=== PATIENT | male | born 1965 | race Caucasian/White ===

== ENCOUNTER 2019-08-12 10:28 | Observation (INO) ==
[2019-08-12] MEDS ORDERED: XYLOCAINE 1%/SOD BICARB 20 ML VIAL INFIL ONE (10:40)
--- NOTE | 2019-08-12 10:52 | Emergency Department Note ---
Impression & Plan Laceration of multiple sites of right hand and fingers, Extensor tendon laceration, finger, open wound ED Provider Note CHIEF COMPLAINT: Hand injury, multiple lacerations HISTORY OF PRESENT ILLNESS: This 54-year-old male patient presented to the emergency department from [facility] accompanied by two CO's after he injured the right hand from punching a glass window. He states he punched his hand through the glass because he got angry, causing multiple lacerations to the right hand. The patient rates the pain as throbbing and 2/10. The patient denies any numbness or tingling in the fingers. He is able to move all the fingers, but reports decreased movement in the right index finger. The patient denies any injuries to the wrist. He denies any other injuries besides the right hand. The patient has not had a previous fracture to this hand. He is right hand dominant. He reports that his tetanus is up to date. He denies any blood thinners. He denies any headaches, chest pain, shortness of breath, nausea or vomiting. REVIEW OF SYSTEMS: A complete 10 point review of systems was reviewed with the patient with pertinent positives and negatives as per history of present il lness. All else were negative. ALLERGIES: No known allergies MEDICATIONS: Reviewed in chart and with the patient PMH: Hypertension, bipolar disorder SOCIAL HISTORY: Inmate at [facility] shelter, former smoker PHYSICAL EXAM: Vital Signs: Reviewed Nurse's notes, vital signs stable. CONSTITUTIONAL: Pleasant and cooperative. No acute distress. Well appearing and well nourished. HEENT: Normocephalic, atraumatic. NECK: Supple, full active range of motion without discomfort. RESPIRATORY: Clear to auscultation bilaterally with no wheezing, crackles, rhonchi or stridor. Equal expansion bilaterally. CARDIOVASCULAR: Regular rate and rhythm with no murmurs, rubs or gallops. Normal peripheral perfusion, 2+ distal pulses in all 4 extremities. No peripheral edema. GASTROINTESTINAL: Soft, nontender, nondistended. Bowel sounds present in all quadrants. MUSCULOSKELETAL: Full range of motion of all joints without discomfort. INTEGUMENTARY: There were multiple deep lacerations noted on the dorsal aspect of the right hand, one measuring approximately 3.5 cm overlying the MCP joint of the right index finger and another 1.5 cm laceration just below the PIP joint on the right index finger, both lacerations appear to extend significantly through the extensor tendon. There is additionally a 1 cm laceration over the dorsal aspect of the middle digit with no deep structures involved, and a 2 cm laceration of the subcutaneous tissue on the dorsal medial aspect of the right hand. There is moderate bleeding from all of the lacerations, most significant from the large laceration over the MCP joint of the index finger. There does not appear to be any exposed bone in the base of any of the wounds and there is no evidence for retained foreign body or foreign material in the wound, the woun ds look clean. Decreased strength and movement of the right index finger, normal strength and movement of all the other fingers. Capillary refill less than 2 seconds. Normal sensation to light and sharp touch throughout. NEUROLOGIC: Alert and oriented X 4 with normal affect. Normal strength and se nsation grossly intact in all 4 extremities. Normal speech. Normal gait observed. ED COURSE AND MEDICAL DECISION MAKING: CC: Patient presenting with complaint of hand injury, multiple lacerations DIFFERENTIAL DIAGNOSIS: Includes, but not limited to laceration, abrasion, tendon injury, open fracture, retained foreign body, blood vessel injury, sprain/strain, among others. IMAGING: XR hand RT min 3V routine CLINICAL HISTORY: Right hand pain status post trauma COMPARISON: None DISCUSSION: No acute fractures or dislocations are visualized. There is a bandage overlying the fifth metacarpal phalangeal joint. IMPRESSION: No acute fractures or dislocations identified. MEDICATION RECONCILIATION: I attest that I have personally reviewed the patient's current medication list. INITIAL VITAL SIGNS REVIEW: I reviewed the patient's initial vital signs and interpret them as follows: T: Afebrile; BP: Hypertensive; HR: Mildly tachycardic; RR: Within normal limits; Pulse Ox: Within normal limits on room air. Blood pressure screening: The patient was found to have an elevated blood pressure, which was felt to be situational. MDM SUMMARY: Patient was evaluated at bedside, history and physical exam performed. Patient is alert and oriented, in no acute distress, sitting calmly on the stretcher. The right hand has multiple lacerations as noted above, with significant tendon involvement in the right index finger. Orders were placed at bedside for X-ray of the right hand to evaluate for trauma. Patient discussed with Dr. Greenberg, who agrees with my assessment, plan, and di sposition. X-ray imaging reviewed as above, no apparent fracture or foreign body. I spoke on the phone with Mulu Kaplan PA-C with the orthopedic surgery team, regarding the extensive tendon injuries. She and Dr. Cabrera evaluated the patient and are planning to take him to the OR for repair. He will most likely be admitted overnight. Patient reassessed multiple times throughout ED stay, he has remained hemodynamically stable and his pain has been adequately controlled. The patient was updated on all results and plan for surgery, he verbalized understanding and was agreeable with this plan. The patient was stable at time of admission. The chart was completed utilizing [employer] voice recognition software. Grammatical errors, random word insertions, pronoun errors, and incomplete sentences are an occasional consequence of this system due to software limitations, ambient noise, and hardware issues. Any formal questions or concerns about the content, text, or information contained within the body of this dictation should be directly addressed to the nurse practitioner for clarification. Past Med/Surg History Medical History Asthma Bipolar 1 disorder Hypertension Surgical History History of right inguinal hernia repair (Acute) as child per patient. 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 Beliefs That Will Affect Care: None Current Living Situation: Other Current Living Situation Comment: [facility], [facility] Other Information That Helps Us Care for You: No Feels Safe at Home: Yes Smoking Status: Former smoker Do You Dip or Chew Tobacco: No ; Hx Alcohol Use: No Hx Substance Use: No Allergies Allergies Allergy/AdvReac Type Severity Reaction Status Date / Time No Known Allergies Allergy Unverified 08/12/19 11:35 Home Meds Home Medications Medication Instructions Recorded Confirmed amlodipine 5 mg PO DAILY 08/12/19 08/12/19 haloperidol decanoate [Haldol 100 mg IM DIRECTED 08/12/19 08/12/19 Decanoate] lithium carbonate 900 mg PO HS 08/12/19 08/12/19 risperidone [Risperdal] 1 mg PO DAILY 08/12/19 08/12/19 Results & Data (ED) Vital Signs Vital Signs - 24 hr 08/12/19 10:32 08/12/19 11:43 08/12/19 13:01 Temperature 36.6 C Temperature Source Oral Pulse Rate 105 H Pulse Rate [Left Foot] 95 H 98 H Pulse Rhythm [Left Foot] Regular Pulse Strength [Left Foot] Normal Respiratory Rate 18 18 14 Respiratory Effort / Characteristics Non-Labored Non-Labored Spontaneous Respiratory Depth Normal Normal Respiratory Pattern Blood Pressure 156/99 H Blood Pressure [Left Arm] 166/77 H 143/85 H Blood Pressure Mean 118 Blood Pressure Mean [Left Arm] 106 104 Blood Pressure Position [Left Arm] Sitting Pulse Oximetry 100 100 100 Oxygen Delivery Method Room Air Room Air Room Air Sepsis Recent Fever Within 48 Hours No Sepsis New/Unexplained Change in Mental Status No Sepsis Action Taken by Nursing No Action Required 08/12/19 13:45 Temperature 36.9 C Temperature Source Oral Pulse Rate Pulse Rate [Left Foot] 96 H Pulse Rhythm [Left Foot] Regular Pulse Strength [Left Foot] Normal Respiratory Rate 20 Respiratory Effort / Characteristics Non-Labored Spontaneous Respiratory Depth Normal Respiratory Pattern Regular Blood Pressure Blood Pressure [Left Arm] 146/104 H Blood Pressure Mean Blood Pressure Mean [Left Arm] 118 Blood Pressure Position [Left Arm] Sitting Pulse Oximetry 98 Oxygen Delivery Method Room Air Sepsis Recent Fever Within 48 Hours Sepsis New/Unexplained Change in Mental Status Sepsis Action Taken by Nursing Laboratory Data Result diagrams: 08/12/19 13:59 08/12/19 13:59 Lab Results 08/12/19 08/12/19 Range/Units 13:59 13:59 WBC 13.03 H (4.8-10.8) K/uL RBC 4.25 L (4.7-6.1) M/uL Hgb 12.9 L (14.0-18.0) g/dL Hct 37.4 L (42-52) % MCV 88.0 (80-100) fL MCH 30.4 (25-34) pg MCHC 34.5 (32-36) g/dL RDW Std Deviation 44.7 (36.4-46.3) fL RDW Coeff of Murali 13.8 (11.5-14.5) % Plt Count 243 (130-400) K/uL MPV 9.4 (7.4-10.4) fL Sodium 137 (136-145) mmol/L Potassium 4.1 (3.5-5.1) mmol/L Chloride 104 (98-107) mmol/L Carbon Dioxide 26 (21-32) mmol/L Anion Gap 7.0 (3-11) BUN 11 (7-18) mg/dl Creatinine 0.91 (0.6-1.4) mg/dl Est Cr Clr Drug Dosing 109.6 ml/min Est GFR ( Amer) 109.6 Est GFR (Non-Af Amer) 94.5 BUN/Creatinine Ratio 12.4 (10-20) Glucose 109 H (70-99) mg/dl Calcium 9.1 (8.5-10.1) mg/dl Phosphorus 4.1 (2.5-4.9) mg/dl Total Bilirubin 0.6 (0.2-1) mg/dl AST 19 (15-37) U/L ALT 40 (12-78) U/L Alkaline Phosphatase 125 H (45-117) U/L Total Protein 7.2 (6.4-8.2) gm/dl Albumin 3.9 (3.4-5.0) gm/dl Globulin 3.3 (2.5-4.0) gm/dl Albumin/Globulin Ratio 1.2 (0.9-2) Administered Medications Discontinued Medications Diphtheria/Pertussis/Tetanus Vacc (Adacel) 0.5 ml IM .ONCE ONE Stop: 08/12/19 12:21 Last Admin: 08/12/19 12:44 Dose: 0.5 ml Documented by: [id number] Cefazolin Sodium (Ancef 2000mg) 2,000 mg in 15 mls @ 3.75 mls/min IV NOW STA Stop: 08/12/19 12:23 Last Admin: 08/12/19 12:43 Dose: 3.75 mls/min Documented by: [id number] Lidocaine HCl (Buffered Lidocaine 1%) 20 ml INFIL NOW ONE Stop: 08/12/19 10:41 Last Admin: 08/12/19 10:49 Dose: 20 ml Documented by: [id number] Discharge Plan Visit Data *Final* Discharge Date/Time: 08/12/19 13:30 Chief Complaint: Hand Injury/Pain Stated Complaint: RT HAND INJURY, PUNCHED WINDOW ED Provider: Aldo Greenberg ED Midlevel Provider: Marisol Fuentes Discharge Problem: Laceration of multiple sites of right hand and fingers, Extensor tendon laceration, finger, open wound Patient Disposition: Still a Patient Discharge Instructions Interventions: ED Discharge Assessment Last Done: 08/12/19 13:30 Discharge Problem: Laceration of multiple sites of right hand and fingers Qualifiers: Encounter type: initial encounter Qualified Code(s): S61.411A - Laceration without foreign body of right hand, initial encounter Extensor tendon laceration, finger, open wound Qualifiers: Encounter type: initial encounter Qualified Code(s): S56.429A - Laceration of extensor muscle, fascia and tendon of unspecified finger at forearm level, initial encounter
--- NOTE | 2019-08-12 11:05 | XRay Report ---
XR hand RT min 3V routine CLINICAL HISTORY: Right hand pain status post trauma COMPARISON: None DISCUSSION: No acute fractures or dislocations are visualized. There is a bandage overlying the fifth metacarpal phalangeal joint. IMPRESSION: No acute fractures or dislocations identified. ACT 112: Negative or not required by law. Electronically signed by: Ender Hutson M.D. 08/12/2019 11:04 AM
[2019-08-12] MEDS ORDERED: CEFAZOLIN 2000MG 2,000 MG/15 ML SYR IV STA (12:20)
[2019-08-12] MEDS ORDERED: DIPHTHERIA/TETANUS/PERTUSSIS 0.5 ML SYR/VIAL IM ONE (12:20)
--- NOTE | 2019-08-12 12:33 | Orthopedic Consultation ---
Date of Consultation August 12, 2019 Assessment & Plan (1) Bipolar 1 disorder: (2) Hypertension: History of Present Illness Reason for Consultation: Right index finger laceration Requesting Physician: Dr Cabrera Attending Physician: Dr Cabrera History of Present Illness 54-year-old male prisoner presented to the emergency department after he injured the right hand from punching a glass window. He states he punched his hand through the glass because he got angry, causing multiple lacerations to the right hand. He complains of throbbing pain. He denies any numbness or tingling. Orthopedics was consults for right index finder laceration involving extensor tendon. Dr Cabrera saw and examined patient. He felt surgery is best option to I and D incisions and repair extensor tendon. I asked to perform History and Physical. Please refer to Dr Cabrera note for more specifics. Patient denies current CP, SOB, N/V, lightheadedness, dizziness, bowel or bladder issues. Allergies Allergy/AdvReac Type Severity Reaction Status Date / Time No Known Allergies Allergy Unverified 08/12/19 11:35 Home Medications Home Medications Medication Instructions Recorded Confirmed Type amlodipine 5 mg PO DAILY 08/12/19 08/12/19 History haloperidol decanoate [Haldol 100 mg IM DIRECTED 08/12/19 08/12/19 History Decanoate] lithium carbonate 900 mg PO HS 08/12/19 08/12/19 History risperidone [Risperdal] 1 mg PO DAILY 08/12/19 08/12/19 History Patient History Social History Feels Safe at Home: Yes Smoking Status: Former smoker Review of Systems Review of Systems: All systems reviewed & are unremarkable except as noted in HPI & below Results & Data ([facility]) Vital Signs (Past 12 Hours) Vital Signs Temp Pulse Pulse Resp BP BP Pulse Ox 08/12/19 11:43 95 H 18 166/77 H 100 08/12/19 10:32 36.6 C 105 H 18 156/99 H 100
--- NOTE | 2019-08-12 12:39 | Consultation Report ---
DATE OF CONSULTATION: 08/12/2019 I was consulted to see Mr. Garg for injury to his right hand. He is 54 years old. He is an inmate and has a history of high blood pressure and bipolar disorder. He punched a window at the shelter facility at 9:00 a.m. this morning, sustained multiple lacerations to his right hand and I was asked to see and evaluate him for this. He did have a cut in another area of his hand that didn't cause injury. His past medical history, surgical history, medications and allergies are noted and reviewed from his medical record. He is seen in conjunction with Tisha Kaplan and for further details, refer to her dictation. She and I saw and evaluated together, I am in agreement with the plan. X-rays of the right hand show no fracture or dislocations. There is a transverse 1.5 cm complex laceration just proximal to the right fifth metacarpophalangeal joint. He is able to extend the little finger. He has a transverse laceration over the long finger PIP joint and is able to extend that finger. He has another transverse laceration over the index finger PIP joint and a oblique laceration at the MCP proximal phalanx of the index finger. Here, this has completely macerated the extensor tendon. The ends of which are visible within the wound. The PIP joint lacerations are about 1 to 1.5 cm in size with no visible tendon. Capillary refill less than 2 seconds. Sensation intact. Findings were discussed and I recommended operative intervention. Given the multiple lacerations and the need to extend the incisions and explore for damage to tendons, ligaments and joints, I have recommended that we proceed to surgery. An informed consent is obtained. The plan is to wash out the hand, explore, close and repair the tendon lacerations as appropriate. He will stay overnight for intravenous antibiotics. He is educated about aftercare and what to expect. Treatment options, risks, benefits, rehab and recovery room were reviewed with the patient. Make sure tetanus is up to date and we will give Ancef. He will be in a splint postoperatively to immobilize for his extensor tendon lacerations. Rehab may be necessary. KHADRA
--- NOTE | 2019-08-12 13:09 | History and Physical Report ---
DATE OF ADMISSION: 08/12/2019 CHIEF COMPLAINT: Right hand injury. HISTORY OF PRESENT ILLNESS: A 54-year-old male presented to the Emergency Department after punching a glass window. He is an inmate. The patient stated that he punched his hand through the glass because he got angry, causing multiple lacerations to his right hand. The patient describes his pain as throbbing. He denies any numbness or tingling. The patient was seen and evaluated by Dr. Cabrear. Dr. Cabrera felt that the patient would be best served with surgery of his right hand with irrigation and debridement of laceration and extensor tendon repair. Dr. Cabrera would like to have the surgery performed today. He asked that I perform the history and physical preop examination. Please refer to Dr. Cabrera's note for specifics. PAST MEDICAL HISTORY: Significant for hypertension, borderline diabetes, bipolar disorder, neuroleptic-induced parkinsonism. PAST SURGICAL HISTORY: Hernia repair, tonsils. ALLERGIES: No known drug allergies. MEDICATIONS: Amlodipine 5 mg p.o. daily, haloperidol 100 mg intramuscularly once weekly every 3 weeks on Wednesdays, lithium carbonate 900 mg p.o. hour to sleep, Risperdal 1 mg p.o. daily. SOCIAL HISTORY: The patient is an inmate. He quit smoking 6 months ago. He states he does not drink or use recreational drugs. FAMILY HISTORY: Noncontributory. REVIEW OF SYSTEMS: The patient denies fevers, chills, sweats, signs and symptoms of infection, shortness of breath, chest pain, bowel or bladder issues, lightheadedness, nausea or vomiting. PHYSICAL EXAMINATION: VITAL SIGNS: The patient is 6 feet 3 inches, 88.5 kilograms. Blood pressure 166/77, pulse 95, respirations 18, temperature 36.6, pulse ox on room air 100%. GENERAL APPEARANCE: No acute distress, alert and oriented x3. Normal mood and affect. He is wearing a mask. He is cuffed. HEAD: Normocephalic, atraumatic. EYES: Extraocular movements intact. Pupils equal, round, reactive to light. Sclerae are normal. Dentition is fair. He does have missing teeth. NECK: Supple, nontender. Functional cervical spine motion. No JVD, no carotid bruits. HEART: Regular rate and rhythm. No murmurs, gallops or rubs. LUNGS: Clear to auscultation. No wheezes, rales or rhonchi. ABDOMEN: Soft, nontender. EXTREMITIES: The patient is neurovascularly intact in bilateral lower extremities with palpable dorsalis pedis, posterior tibial pulses. Calves are soft. Right upper extremity exam, the patient does have an open wound and lacerations to his right hand, specifically his right index finger. Please refer to Dr. Cabrera's physical exam for more specifics. DIAGNOSTIC STUDIES: [facility] of the right [facility]. No acute fracture or dislocation identified, no foreign body. IMPRESSION: Right hand laceration and extensor tendon laceration. PLAN: Please see Dr. Cabrera's note in detail. Dr. Cabrera did speak to the patient today. Dr. Cabrera explained to the patient that he would be a candidate for surgical intervention to provide him the best outcome. The surgery will include right hand I and D of laceration and extensor tendon repair. Dr. Cabrera did discuss in detail the potential risks, complications, and outcomes of the surgery. The consent was signed by Dr. Cabrera, the patient and witnessed. The patient will be n.p.o. Surgery will be planned for today. The patient will receive 2 grams of Ancef. We will also perform an EKG. We will follow with the patient in house. He will be admitted to Dr. Cabrera's service. KHADRA
[2019-08-12] MEDS ORDERED: LIDOCAINE HCL 1% 20 ML VIAL ONE (13:39)
[2019-08-12] MEDS ORDERED: BUPIVACAINE 0.5 % 5 MG/1 ML MPF 30ML VIAL ONE (13:39)
[2019-08-12] MEDS ORDERED: BACITRACIN INJ 50,000 UNIT VIAL ONE (13:39)
--- NOTE | 2019-08-12 13:46 | Anesthesiology Consultation ---
Date of Service August 12, 2019 Assessment & Plan (1) Encounter for pre-operative examination: Chart Review Chart Review: Acceptable Risk for Surgery and Patient NOT seen in Pre Admission Testing Consults Requested none ASA [id number] Proposed Anesthesia Anesthesia Type: General Risk / Benefits Reviewed With: PT / POA / Parent / Guardian, Accepts Plan and Informed Consent Obtained History Surgery Operation Date: 08/12/19 08:30 Proposed Procedures p Right Hand Exploartion, Extensor Tendon Repair with - Conor Cabrera MD s Incision and Drainage - Conor Cabrera MD Height/Weight Height: 6 ft 3 in Weight: 88.5 kg Allergies Allergy/AdvReac Type Severity Reaction Status Date / Time No Known Allergies Allergy Unverified 08/12/19 11:35 Medications Home Medications Medication Instructions Recorded Confirmed Last Taken amlodipine 5 mg PO DAILY 08/12/19 08/12/19 Unknown haloperidol decanoate [Haldol 100 mg IM DIRECTED 08/12/19 08/12/19 Unknown Decanoate] lithium carbonate 900 mg PO HS 08/12/19 08/12/19 Unknown risperidone [Risperdal] 1 mg PO DAILY 08/12/19 08/12/19 Unknown NPO Date Last Intake of Fluids: 08/12/19 Time Last Intake of Fluids: 07:00 Date Last Intake of Solids: 08/12/19 Time Last Intake of Solids: 07:00 Last Intake of Solids Comment: CHEERIOS AND TOAST Past Medical History Medical History Asthma Bipolar 1 disorder Hypertension Exercise / Class Metabolic Activity III < 4 Walking/Shop/Light housework Negative for chest pain or shortness of breath. Past Family History Family history non-contributory Past Surgical History Surgical History History of right inguinal hernia repair (Acute) as child per patient. Hx of tonsillectomy (Acute) as child Past Anesthesia History No Hx of Anesthesia Complications History of PONV No Hx of PONV Social History Smoking Status: Former smoker Do You Dip or Chew Tobacco: No Hx Alcohol Use: No Hx Substance Use: No Review of Systems Patient denies active symptoms of GERD. Physical Exam Vital Signs Last Vital Signs Temp 36.9 C 08/12/19 13:45 Pulse 96 H 08/12/19 13:45 Resp 20 08/12/19 13:45 BP 146/104 H 08/12/19 13:45 Pulse Ox 98 08/12/19 13:45 Constitutional not obese ENMT Mouth: + chipped teeth Thyromental Distance: > or= 3.5 Finger Breadths Mallampati Class: II Mouth / Teeth: 1. Chipped 2. Chipped Neck normal visual inspection; neck extension not limited Respiratory normal respiratory effort Auscultation: lungs clear to auscultation bilaterally Cardiovascular Rate/Rhythm: regular rate and regular rhythm Heart Sounds: no murmur Neurologic moves all extremities Psychiatric Orientation: alert and oriented x 3 Testing Laboratory Results 07/13/2019 WBC: 8.34 H/H: 12.1/36.6 PLATELETS:274 SODIUM: 131 POTASSIUM: 4.7 CHLORIDE: 93 CO2: 28 BUN: 8 CREATININE: 0.89 GLUCOSE: 127 Electrocardiogram Date: 08/12/19 Findings: + NSR @ (90)
[2019-08-12] MEDS ORDERED: fentaNYL citrate 100 MCG/2 ML VIAL ONE (13:56)
[2019-08-12] MEDS ORDERED: MIDAZOLAM HCL 1 MG/ML 2ML VIAL ONE (13:56)
[2019-08-12 14:12] LABS: Hematocrit (blood only) 37.4 % (42-52); Hemoglobin 12.9 g/dL (14.0-18.0); Mean Corpuscular Hemoglobin 30.4 pg (25-34); Mean Platelet Volume 9.4 fL (7.4-10.4); Platelet Count 243 K/uL (130-400); RDW Coefficient of Variation 13.8 % (11.5-14.5); RDW Standard Deviation 44.7 fL (36.4-46.3); Red Blood Count 4.25 M/uL (4.7-6.1); White Blood Count 13.03 K/uL (4.8-10.8)
[2019-08-12 14:15] LABS: Mean Corpuscular Hgb Conc 34.5 g/dL (32-36)
[2019-08-12 14:28] LABS: Albumin Level 3.9 gm/dl (3.4-5.0); BUN Creatinine Ratio 12.4 (10-20); Calcium 9.1 mg/dl (8.5-10.1); Creatinine Clr Calc Pharmacy 109.6 ml/min; Est GFR (African American) 109.6; Est GFR (Non-African American) 94.5; Potassium 4.1 mmol/L (3.5-5.1)
[2019-08-12 14:30] LABS: Albumin Globulin Ratio 1.2 (0.9-2); Bilirubin,Total 0.6 mg/dl (0.2-1); Globulin 3.3 gm/dl (2.5-4.0); Phosphorus 4.1 mg/dl (2.5-4.9); Total Protein 7.2 gm/dl (6.4-8.2)
[2019-08-12] MEDS ORDERED: LIDOCAINE HCL 2% 2 ML VIAL/AMP(20MG/ML) INFIL ONE (14:51)
[2019-08-12] MEDS ORDERED: PROPOFOL IV EMULSION 10 MG/ML 20 ML VIAL IV ONE ×2 (14:51→16:01)
--- NOTE | 2019-08-12 14:56 | Electrocardiogram Report ---
Test Reason : Blood Pressure : / mmHG Vent. Rate : 090 BPM Atrial Rate : 090 BPM P-R Int : 166 ms QRS Dur : 094 ms QT Int : 368 ms P-R-T Axes : 056 068 084 degrees QTc Int : 450 ms Normal sinus rhythm Normal ECG No previous ECGs available Confirmed by Shun Potter ([id number]) on 08/12/2019 2:56:05 PM Referred By: [facility] Confirmed By:Shun Potter
[2019-08-12] MEDS ORDERED: fentaNYL citrate 100 MCG/2 ML VIAL IV PRN (15:30)
[2019-08-12] MEDS ORDERED: ATROPINE SULFATE 0.1 MG/ML 10ML SYR IV PRN (15:30)
[2019-08-12] MEDS ORDERED: ePHEDrine sulfate 50 MG/ML AMP IV PRN (15:30)
[2019-08-12] MEDS ORDERED: ONDANSETRON INJ 2 MG/ML 2 ML VIAL IV PRN ×2 (15:30→17:15)
[2019-08-12] MEDS ORDERED: DEXAMETHASONE SOD INJ 4 MG/ML VIAL ONE (15:31)
[2019-08-12] MEDS ORDERED: ONDANSETRON INJ 2 MG/ML 2 ML VIAL ONE (15:31)
--- NOTE | 2019-08-12 16:34 | Post Operative Brief Note ---
Immediate Post Op Note v1 Date of Surgery August 12, 2019 Pre & Post Diagnosis Operation Date: 08/12/19 08:30 Pre-Op Diagnosis: Right hand injury post op diagnosis, multiple extensor tendon lacerations I identified the patient and participated in the time-out.: Yes Procedure Operation Date: 08/12/19 08:30 Actual Procedures p Right Hand Exploration, Extensor Tendon Repair with(Right) - - Conor Cabrera MD Surgeon Conor Cbarera MD Adolescent Coordinator flora Estimated Blood Loss 2 Findings Consistent with Post-Op Diagnosis Anesthesia Type MAC Regional Complications none Disposition Accompanied Patient To Recovery: No Disposition: Recovery Room Overlapping Procedure I was present for: the critical portions of procedure.
--- NOTE | 2019-08-12 16:45 | Operative Report ---
Post Operative Report Pre & Post Diagnosis Operation Date: 08/12/19 08:30 Pre-Op Diagnosis: Right hand injury I identified the patient and participated in the time-out.: Yes Procedure Operation Date: 08/12/19 08:30 Actual Procedures p Right Hand Exploration, Extensor Tendon Repair with(Right) - Conor Cabrera MD s Incision and Drainage(Right) - Conor Cabrera MD Surgeon Conor Cabrera MD Retail Area Manager flora Estimated Blood Loss 2 Findings Consistent with Post-Op Diagnosis Specimens None Complications none Disposition Accompanied Patient To Recovery: Yes Disposition: Recovery Room Description of Procedure Supine, standard prep and drape, wrist tourniquet, timw-out Right Hand Exploration, Extensor Tendon Repair with Incision and Drainage Please see Dr Cabrera's procedure notes for specific details I was present throughout the case, assisted for wound closure and transferred the patient to PACU in stable condition I attest to the content of the Intraoperative Record and any orders documented therein. Any exceptions are noted below.
--- NOTE | 2019-08-12 16:54 | Anesthesiology Progress Note ---
Date of Service August 12, 2019 Anesthesia Post Procedure Vital Signs Vital Signs: Temp Pulse Pulse Pulse Resp BP BP 08/12/19 16:45 76 16 113/73 08/12/19 16:39 36.4 C L 80 16 113/75 08/12/19 13:45 36.9 C 96 H 20 146/104 H 08/12/19 13:01 98 H 14 143/85 H 08/12/19 11:43 95 H 18 166/77 H 08/12/19 10:32 36.6 C 105 H 18 156/99 H Pulse Ox 08/12/19 16:45 97 08/12/19 16:39 100 08/12/19 13:45 98 08/12/19 13:01 100 08/12/19 11:43 100 08/12/19 10:32 100 Pain Intensity Right Hand: Pain Intensity: 3 Transfer of Care Handoff Completed per policy Notes Mental Status: alert / awake / arousable and participated in evaluation Patient Amnestic to Procedure: Yes Nausea / Vomiting: adequately controlled Pain: adequately controlled Airway Patency, RR, SpO2: stable & adequate BP & HR: stable & adequate Hydration State: stable & adequate Anesthetic Complications: no major complications apparent
--- NOTE | 2019-08-12 16:58 | Operative Report ---
Post Operative Report Pre & Post Diagnosis Operation Date: 08/12/19 08:30 Pre-Op Diagnosis: Right hand injury Postop diagnosis: Multiple lacerations to the right hand with extensor tendon injuries to the index long and ring fingers. I identified the patient and participated in the time-out.: Yes Procedure Operation Date: 08/12/19 08:30 Actual Procedures p Right Hand Exploration, Extensor Tendon Repair with(Right) - Conor Cabrera MD Surgeon Conor Cabrera MD Die Out Worker flora Estimated Blood Loss 2 Findings Consistent with Post-Op Diagnosis Specimens None Anesthesia Type [facility] Complications none Disposition Accompanied Patient To Recovery: No Disposition: Recovery Room Indications Patient is a 54-year-old inmate. He punched a window sustaining multiple lacerations and suspected extensor tendon lacerations particularly of the index finger which is clearly visible. I recommended surgical exploration of the hand and repair of the wounds and tendon injuries as appropriate. His x-rays are negative. He received preop antibiotics and tetanus. Description of Procedure Informed consent obtained. Patient identified. He identified the operative site as the right hand which I marked with my initials. A preop surgical timeout was performed and preop dose of IV antibiotics was given. He was taken to the operating room positioned supine on the OR table. A 10 was applied to the right upper arm but not inflated during the case the arm was pre-scrubbed with Betadine scrub brush and then prepped and draped with Betadine in the usual sterile fashion. DVT prophylaxis with early patient mobility. He was positioned supine on the OR table with his right arm on hand table. A wrist block was performed with 20 cc 1% plain lidocaine and 0.5% plain Marcaine. The the hand was exsanguinated with the Esmarch and a tourniquet was created by wrapping the Esmarch upon itself at the level of the wrist where the block had been done. The little finger was addressed first. In zone 6 over the shaft of the metacarpal there was a complex laceration with a couple small irregularities and skin flaps towards the ulnar aspect. It was transverse for 1-1/2 cm and then distal for 1 cm. It was extended proximal and ulnar. The flaps were pinned down with 4-0 nylon sutures. The wound was copiously irrigated with sterile saline. The extensor digit he minimi was completely lacerated and the extensor digitorum communis tendon to the little finger was about 50% lacerated. A core suture repair with 4-0 FiberWire was performed followed by oversewing with a running reverse locked 5-0 Prolene suture. The wound was again irrigated and then closed it with 4-0 nylon sutures using simple and horizontal mattress type stitches for complete closure. Attention was turned to the long finger. In zone 3 there was a 1-1/2 cm transverse laceration which when opened and explored proximally and distally showed a full-thickness laceration through the central slip just proximal to the metacarpophalangeal joint. This was again irrigated all lacerations were cleaned of any debris. This was reapproximated with the finger extended using a running locked 4-0 FiberWire suture. The skin was then closed with 4-0 nylon. The index finger was then addressed. There were 2 lacerations and oblique 1-1/2 cm laceration over the zone 3 area just proximal to the PIP joint. There was a larger laceration parallel in 1-1/2 cm proximal to it from zone 3 into zone 4. There is an obvious full-thickness extensor tendon disruption at the more proximal laceration which was about 3-1/2 cm in length. Irrigation and debridement was performed. The distal injury was then reapproximated with a running locked 4-0 FiberWire suture and the skin was closed with 4-0 nylon. The larger laceration more proximally was treated with three 4-0 FiberWire core sutures. All of the core sutures utilized were a modified Solorzano. These were then sequentially tied with minimal bunching and gaping. This was then oversewn with a baseball stitch and a running reverse locked suture. This was then closed with interrupted 4-0 nylon sutures. The arm was cleaned with wet and dry sponges Xeroform was applied 4 x 4's between the fingers 4 x 4's over the wound followed by cast padding and a splint with the wrist neutral and the fingers fully extended. The splint ran from the tip of the fingers to the mid forearm. Prior to this the tourniquet was removed there was no significant bleeding encountered all fingers pinked up nicely and the tourniquet time was 60 minutes. Patient is awakened from anesthesia without difficulty and taken to the recovery room in stable condition. There were no specimens or complications. Counts were correct. Blood loss was 2 cc. At the conclusion the operation spoke there was no unavailable to speak to. Patient will be admitted to the hospital for elevation pain control and IV antibiotics. His tetanus is now up-to-date. The plan will be for immobilization for several weeks followed by initiation of hand therapy if available through the [facility]. I attest to the content of the Intraoperative Record and any orders documented therein. Any exceptions are noted below.
[2019-08-12] MEDS ORDERED: METOCLOPRAMIDE HCL INJ 5 MG/ML 2 ML VIAL IV PRN (17:15)
[2019-08-12] MEDS ORDERED: TRAMADOL HCL 50 MG TABLET PO PRN (17:15)
[2019-08-12] MEDS ORDERED: bisacodyL 10 MG SUPP PR PRN (17:15)
[2019-08-12] MEDS ORDERED: KETOROLAC 30 MG/ML VIAL IV PRN (17:15)
[2019-08-12] MEDS ORDERED: ALUMINUM/MAGNESIUM SUSP 30 ML UDC PO PRN (17:15)
[2019-08-12] MEDS ORDERED: OXYCODONE HCL IR 5 MG TAB (IMMEDIATE RELEASE) PO PRN (17:15)
[2019-08-12] MEDS: SODIUM CHLORIDE 0.9% 1000ML 1,000 ML IV SCH (17:15)
[2019-08-12] MEDS ORDERED: ACETAMINOPHEN 500 MG TAB PO PRN (17:15)
[2019-08-12] MEDS ORDERED: MAGNESIUM HYDROXIDE SUSP 30 ML UDC PO PRN (17:15)
[2019-08-12] MEDS ORDERED: NALOXONE HCL 0.4 MG/1 ML VIAL/CARP IV PRN (17:15)
[2019-08-12] MEDS: CEFAZOLIN 2000MG 2,000 MG/15 ML SYR IV SCH (20:24)
[2019-08-12] MEDS: DOCUSATE SODIUM 100 MG CAP PO SCH (20:25)
[2019-08-12] MEDS ORDERED: LITHIUM CARBONATE 300 MG TAB PO SCH (21:00)
[2019-08-12] MEDS ORDERED: SENNA 8.6 MG TAB PO SCH (21:00)
[2019-08-13] MEDS: SODIUM CHLORIDE 0.9% 1000ML 1,000 ML IV SCH (03:45)
[2019-08-13] MEDS: CEFAZOLIN 2000MG 2,000 MG/15 ML SYR IV SCH (05:05)
[2019-08-13] MEDS: DOCUSATE SODIUM 100 MG CAP PO SCH (08:38)
[2019-08-13] MEDS ORDERED: AMLODIPINE BESYLATE 5 MG TAB PO SCH (09:00)
[2019-08-13] MEDS ORDERED: risperiDONE 1 MG TABLET PO SCH (09:00)
[2019-08-13] MEDS ORDERED: MULTIVITAMIN TAB PO SCH (09:00)
--- NOTE | 2019-08-13 09:15 | Orthopedic Progress Note ---
Date of Service August 13, 2019 Assessment & Plan (1) Laceration of multiple sites of right hand and fingers: POD 1 - s/p repair extensor tendons right hand with Dr. Cabrera Continue splint right hand, leave on at all times, keep clean and dry Continue ice and elevation of right hand above your heart Regular diet as tolerated No use of right hand/NWB RUE OOB as tolerated Plan for discharge today and follow up with Dr. Cabrera as instructed in 10-14 days. Will discuss findings with Dr. Cabrera Present on Admission?: Yes Admission and Anticipated Discharge Date Admission Date: August 12, 2019 Subjective Patient denies pain, no swelling, has had hand elevated above his heart. Ice bag in place. Denies numbness or tingling. Denies chest pain, nausea, vomiting, trouble urinating, shortness of breath, or lightheadedness or dizziness. Physical Exam Musculoskeletal: Exam of right hand: Right hand splint clean, dry intact. Fingers warm. Distal sensation normal. Full ROM right elbow. Cap refill brisk. Nail beds normal. No evidence of distal edema Results & Data ([facility]) Vital Signs (Past 12 Hours) Vital Signs Temp Pulse Resp BP Pulse Ox 08/13/19 07:26 36.9 C 78 18 150/84 H 98 08/13/19 03:10 36.7 C 79 16 143/84 H 97 08/12/19 22:54 36.7 C 98 H 20 147/91 H 99 (1) Laceration of multiple sites of right hand and fingers Encounter type: initial encounter Qualified Code(s): S61.411A - Laceration without foreign body of right hand, initial encounter; S61.219A - Laceration without foreign body of unspecified finger without damage to nail, initial encounter
--- NOTE | 2019-08-13 09:55 | Discharge Summary ---
Date of Service August 13, 2019 Discharge Data Consultations 08/12/19 12:03 ED Decision to Admit Stat Procedures Performed Operation Date: 08/12/19 08:30 Actual Procedures p Right Hand Exploration, Extensor Tendon Repair with(Right) - Conor Cabrera MD s Incision and Drainage(Right) - Conor Carbera MD Hospital Course (1) Laceration of multiple sites of right hand and fingers: Patient is a 54-year-old inmate from [facility] who presented to the emergency room yesterday with an injury to his right hand after punching a window. He was found to have multiple lacerations to his right hand with extensor tendon lacerations of the index middle and ring fingers. X-rays in the emergency room were obtained and show no evidence of bony abnormality fracture dislocation of his right hand on x-ray. Orthopedic consult was obtained in the emergency room and he was seen and evaluated by Dr. Cabrera. Surgical debridement, irrigation and repair was recommended. Informed consent was obtained by Dr. Cabrera. He underwent surgery on August 12, 2019 for repair of his extensor tendon lacerations with Dr. Cabrera. During his inpatient stay he tolerated a regular diet. He was allowed out of bed as tolerated. His right hand was placed in a bulky splint and he was ad vised to keep that on at all times. He was recommended to ice and elevate his right hand for swelling and pain. He was given IV Ancef preoperatively and was continued on IV Ancef for 24 hours after the procedure for antibiotic prophylaxis. His vital signs remained stable with some slightly elevated blood pressure during his inpatient stay. His home medications were continued postoperatively. He was placed on Tylenol, oxycodone and Toradol for postoperative pain relief. We will send him on Keflex 500mg TID x 5 days. He tolerated his procedure well without any intraoperative or postoperative complications. He was discharged [facility] on August 13, 2019 in stable condition. Discharge instructions were provided as per EMR.
[2019-08-14] MEDS ORDERED: HALOPERIDOL DECANOATE INJ 50 MG/ML VIAL IM SCH (09:00)
== END 2019-08-13 13:22 ==
LOC: ED 10:28 → 3E 13:30 → OR 13:30